=== PATIENT | female | born 1980 | race Caucasian/White ===

== ENCOUNTER 2016-07-18 12:42 | Emergency (ER) | payer MEDICAID, OTHER ==
[2016-07-18 14:29] VITALS: BP 129/64
--- NOTE | 2016-07-18 15:29 | RAD ---
INDICATION: Pain and swelling. COMPARISON: None TECHNIQUE: Duplex interrogation of the Lowerextremity was performed. FINDINGS: Deep veins: The common femoral, great saphenous, profunda femoris, proximal, mid, and distal deep femoral, popliteal, posterior tibial, and peroneal veins are patent. There is normal compressibility, augmentation, and phasic flow. Superficial veins: There are no findings of superficial thrombophlebitis. Popliteal fossa: There is a 3.3 x 1.0 x 1.7 cm popliteal cyst. Soft tissues:There are no soft tissue abnormalities. IMPRESSION: POPLITEAL CYST. NO EVIDENCE OF DEEP VENOUS THROMBOSIS.
--- NOTE | 2016-07-18 15:53 | UC ---
Lower Extremity/Ankle HPI - HPI Summary HPI Summary: PATIENT PRESENTS TO WITH CC OF WORSENING LEFT KNEE PAIN AND SWELLING OVER THE PAST SEVERAL WEEKS. SHE ALSO ENDORSES CALF PAIN WHICH IS REFERRED FROM THE POSTERIOR KNEE. SHE IS BEARING WEIGHT, ALTHOUGH SHE HAS AN ABNORMAL GAIT D/T PAIN. PAIN IS 5/10 AND CONSTANT. SHE HAS TRIED ELEVATION AND ICE WITHOUT RELIEF. SHE WAS SEEN AT A PCP OFFICE WHO GAVE HER MEXOLICAM WHICH SHE STATES DID NOT HELP, SO SHE DC'D USE. SHE HAS NEVER HAD THIS BEFORE AND HAS NO PERSONAL HISTORY OF JOINT PAINS. SHE HAS A STRONG FAMILY HISTORY OF OSTEOARTHRITIS. 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 SHE DENIES KNOWN INJURY. SHE IS OVERWEIGHT, BUT IS OTHERWISE HEALTHY AND TAKES NO MEDICATIONS. SHE IS REQUESTING A CORTISONE SHOT AND/OR DRAINAGE OF THE FLUID AROUND THE KNEE. IT WAS EXPLAINED TO PATIENT THERE WAS NOT MUCH FLUID AVAILABLE FOR AN ASPIRATION AND THE RISKS OUTWEIGH BENEFITS AT THIS TIME FOR INTRODUCING INFECTION. D/T PATIENT CALF PAIN, WILL OBTAIN AN US OF THE LLE. - History of Current Complaint Chief Complaint: UCLowerExtremity Stated Complaint: LEFT KNEE PAIN Time Seen by Provider: 07/18/16 14:24 Hx Obtained From: Patient Hx Last Menstrual Period: 07/05/16 ?: No Onset/Duration: Gradual Onset Severity Initially: Moderate Severity Currently: Moderate Pain Intensity: 5 Pain Scale Used: 0-10 Numeric Aggravating Factor(s): Standing, Ambulation Alleviating Factor(s): Rest Able to Bear Weight: Yes - Risk Factors Gout Risk Factors: Negative DVT Risk Factors: Negative Septic Arthritis Risk Factor: Negative - Allergies/Home Medications Allergies/Adverse Reactions: Allergies Allergy/AdvReac Type Severity Reaction Status Date / Time No Known Allergies Allergy Verified 07/18/16 14:29 Home Medications: Home Medications Meloxicam 7.5 mg PO BID 07/18/16 [History Confirmed 07/18/16] PMH/Surg Hx/FS Hx/Imm Hx Previously Healthy: Yes - Surgical History Surgical History: None - Family History Known Family History: Positive: Unknown, Other - OSTEOARTHRITIS - Social History Occupation: Employed Full-time Alcohol Use: None Substance Use Type: None Smoking Status (MU): Never Smoked Tobacco Review of Systems Constitutional: Negative Skin: Negative ENT: Negative Respiratory: Negative Cardiovascular: Negative Motor: Decreased ROM Neurovascular: Negative Musculoskeletal: Arthralgia Neurological: Negative Psychological: Negative All Other Systems Reviewed And Are Negative: Yes Physical Exam Triage Information Reviewed: Yes Appearance: Well-Appearing, No Pain Distress, Well-Nourished Vital Signs: Initial Vital Signs Temp 98.2 F 07/18/16 14:22 Pulse 90 07/18/16 14:22 Resp 16 07/18/16 14:22 BP 129/64 07/18/16 14:22 Pulse Ox 100 07/18/16 14:22 Vital Signs Reviewed: Yes Eye Exam: Normal Eyes: Positive: Conjunctiva Clear Neck exam: Normal Neck: Positive: Supple, Nontender, No Lymphadenopathy Respiratory Exam: Normal Respiratory: Positive: Chest non-tender, Lungs clear Cardiovascular Exam: Normal Cardiovascular: Positive: RRR Musculoskeletal Exam: Normal Musculoskeletal: Positive: Strength Limited @ - LEFT KNEE D/T PAIN, ROM Limited @ - LEFT KNEE D/T PAIN Neurological Exam: Normal Neurological: Positive: Alert, Muscle Tone Normal Psychological Exam: Normal Skin Exam: Normal Lower Extremity Course/Dx - Course Course Of Treatment: PATIENT SENT FOR US TO R/O DVT. POPLITEAL CYST ON US IMAGE. PATIENT MADE AWARE. SHE IS REQUESTING LAB WORK TO MAKE SURE NO INFECTION OR INFLAMMATION. IT WAS EXPLAINED TO THE PATIENT SHE WILL HAVE INFLAMMATION IT IS APPARENT ON PHYSICAL EXAM. ALTHOUGH SHE REQUESTS A CORTISONE SHOT OR ASPIRATION IT WAS EXPLAINED THE FLUID IS NOT LARGE ENOUGH TO ASPIRATE AT THIS TIME AND PATIENT WILL FOLLOW UP WITH DR. HUBBARD FOR FURTHER EVALATION THIS WEEK. PATIEN AGREES AND IS OK FOR DISCHARGE. CRP, ESR AND WBC OBTAINED. - Differential Dx/Diagnosis Differential Diagnosis/HQI/PQRI: Bursitis, Gout, Osteomyelitis, Sprain, Strain, Tendonitis Provider Diagnoses: KNEE EFFUSION Discharge - Discharge Plan Condition: Stable Disposition: HOME Patient Education Materials: Swollen Knee Joint (ED) Additional Instructions: FOLLOW UP WITH DR. HUBBARD THIS WEEK FOR FURTHER EVALUATION CONTINUE WITH MELOXICAM TAKE PAIN MEDICATION DIRECTED AND NEEDED.
[2016-07-18 19:40] LABS: Hematocrit 36 % (35-47); Hemoglobin 10.8 g/dl (12.0-16.0); Mean Corpuscular HGB Conc 31 g/dl (31-36); Mean Corpuscular Hemoglobin 17 pg (27-31); Mean Corpuscular Volume 57 fL (80-97); Mean Platelet Volume 10 um3 (7.4-10.4); Red Blood Count 6.25 10^6/ul (4.0-5.4); Red Cell Distribution Width 16 % (10.5-15); White Blood Count 12.2 10^3/ul (3.5-10.8)
[2016-07-18 19:41] LABS: Comments Flag Yes
[2016-07-18 19:43] LABS: Add Diff/Slide Review? Slide Review Added
[2016-07-18 20:09] LABS: Hypochromasia 3+; Microcytosis 2+
[2016-07-18 20:10] LABS: Polychromasia 1+
[2016-07-18 20:12] LABS: Add Path Review? YES
--- NOTE | 2016-07-20 07:42 | UC ---
Progress - Progress Note Progress Note: Labs show microcytosis (small red blood cells) and suggestion of thalasssemia. This is not an emergency and can be discussed with pcp for further workup if indicated.
== END 2016-07-18 16:14 | disposition home or self-care (01) ==
LOC: UCCORT 12:42
DX: M25.462 Effusion, left knee (principal); M25.562 Pain in left knee; M71.22 Synovial cyst of popliteal space [Baker], left knee; M79.89 Other specified soft tissue disorders
CPT/HCPCS: 36415; 85025; 85060; 85652; 86140; 99212; G0463

== ENCOUNTER 2017-01-20 14:39 | Emergency (ER) | payer OTHER ==
--- NOTE | 2017-01-20 15:13 | UC ---
Respiratory Complaint HPI - HPI Summary HPI Summary: 37 y/o female presents to the urgent care c/o sore throat, sinus congestion with post nasal drip and dry cough since 01/18/2017. Pt states her daughter was sick first. She would like the strep test to be done. Pt states TIERNEY and sore throat is 8/10. She has taking Mucinex and Nyquil to alleviate symptoms. Pt denies SOB, chest pain, abdominal pain, N/V/D - History of Current Complaint Stated Complaint: COUGH Time Seen by Provider: 01/20/17 15:12 Hx Obtained From: Patient Hx Last Menstrual Period: 07/05/16 ?: No Onset/Duration: Gradual Onset Timing: Constant Severity Initially: Mild Severity Currently: Severe Pain Intensity: 9 Pain Scale Used: 0-10 Numeric Character: Cough: Nonproductive Alleviating Factors: OTC Meds Associated Signs And Symptoms: Positive: Dyspnea, Nasal Congestion, Sinus Discomfort. Negative: Fever - Risk Factors Pulmonary Embolism Risk Factors: Negative Cardiac Risk Factors: Negative Pseudomonas Risk Factors: Negative Tuberculosis Risk Factors: Negative - Allergies/Home Medications Allergies/Adverse Reactions: Allergies Allergy/AdvReac Type Severity Reaction Status Date / Time No Known Allergies Allergy Verified 01/20/17 15:15 PMH/Surg Hx/FS Hx/Imm Hx Previously Healthy: Yes - Pt denies PMHX - Surgical History Surgical History: Yes Surgery Procedure, Year, and Place: CYST REMOVED FROM LOW BACK - Family History Known Family History: Positive: Diabetes Family History: OSTEOARTHRITIS - Social History Occupation: Employed Full-time Lives: With Family Alcohol Use: None Substance Use Type: None Smoking Status (MU): Never Smoked Tobacco Review of Systems Constitutional: Negative Skin: Negative Eyes: Negative ENT: Sore Throat, Nasal Discharge, Sinus Congestion, Sinus Pain/Tenderness Respiratory: Cough - dry Cardiovascular: Negative Gastrointestinal: Negative Genitourinary: Negative Motor: Negative Neurovascular: Negative Musculoskeletal: Negative Neurological: Headache Psychological: Negative Is Patient Immunocompromised?: No All Other Systems Reviewed And Are Negative: Yes Physical Exam Triage Information Reviewed: Yes - Additional Comments Vitals: reviewed General: Well developed, well-nourished female patient with NAD. Head and face: Normocephalic and atraumatic, Positive tenderness over the frontal and maxillary sinuses.. Eyes: PERRLA, EOMI x 2. Normal conjunctiva. No eye discharge. ENT: Ears and TM with normal limits. Nose: with yellowish discharge and edematous and erythematous mucosa. Pharynx with erythema, mild exudate. on left tonsil w/o enlargement Neck: Supple, no JVD, no carotid bruits and no lymphadenopathy. Lungs: clear, no rales, no rhonchi, no wheezes. CVS: RRR, S1 and S2 present no murmurs or gallops appreciated. Abdomen: soft nontender with positive bowel sounds. Extremities: no edema noted. Neuro: WNL. Skin: warm and dry Respiratory Course/Dx - Course Course Of Treatment: 37 y/o female presents to the urgent care c/o sore throat, sinus congestion with post nasal drip and dry cough since 01/18/2017. Pt states her daughter was sick first. She would like the strep test to be done. Pt states TIERNEY and sore throat is 8/10. She has taking Mucinex and Nyquil to alleviate symptoms. Pt denies SOB, chest pain, abdominal pain, N/V/D. Hx obtained. Pt with sinusitis and pharyngitis on examiantion. Rapid strep ordered , result: negative. Pt's BP elevted, but was done with smaller BP cuff. Repeated BP: 139/70. Pt with almost 2 weeks of symptoms getting worse. Pt Rx Amoxicillin PO and flonase nasal spray. Tessalon PO for cough. Discharge instructions explained to Pt. Advised to Return to the clinic or PCP if symptoms do not improve.Pt understood and agreed with plan of care. - Differential Dx/Diagnosis Differential Diagnosis/HQI/PQRI: Asthma, Bronchitis, Influenza, Laryngitis, Sinusitis Provider Diagnoses: 1- Acute bacterial sinusitis. 2- Cough Discharge - Discharge Plan Condition: Stable Disposition: HOME Prescriptions: Amoxicillin PO (*) [Amoxicillin 875 MG (*)] 875 mg PO BID #20 tab Benzonatate CAP* [Tessalon 100 MG CAP*] 100 mg PO TID PRN #15 cap PRN Reason: Cough Fluticasone NASAL SPRAY 50MCG* [Flonase NASAL SPRAY 50MCG*] 2 spray BOTH NARES DAILY #1 btl Patient Education Materials: Pharyngitis (ED), Sinusitis (ED) Referrals: Lamont White DO [Primary Care Provider] - If Needed Additional Instructions: 1- Please increase fluid intake and rest. take full course of antibiotic to avoid resistance 2-Use Flonase as directed to help drain fluid. Also buy saline drops to clear sinuses. Increase fluid intake eat well and rest 3-Take Tessalon PO to alleviates cough 4-Return to the clinic or PCP if symptoms do not improve for further management and treatment
[2017-01-20 15:43] VITALS: BP 139/70
== END 2017-01-20 15:42 | disposition home or self-care (01) ==
LOC: UCCORT 14:39
DX: J01.90 Acute sinusitis, unspecified (principal); R05 Cough; R06.00 Dyspnea, unspecified
CPT/HCPCS: 87651; 99212; G0463

== ENCOUNTER 2018-05-23 08:01 | Inpatient (IN) | payer OTHER ==
[2018-05-23] MEDS ORDERED: Buffered Lidocaine 1% SYRIN* 1 ML/SYRINGE INTRADERM ONE (09:03)
[2018-05-23] MEDS ORDERED: Lactated Ringers 1000 ML Bag* 1,000 ML IV ONE ×2 (09:03→16:56)
[2018-05-23] MEDS ORDERED: Nalbuphine* 10 MG/ML 1 ML VIAL IV ONE (09:08)
[2018-05-23] MEDS ORDERED: Promethazine INJ(RESTRICTED)* 25 MG/ML 1 ML VIAL IV ONE (09:08)
[2018-05-23] MEDS ORDERED: Benzonatate CAP* 100 MG PO PRN (09:17)
[2018-05-23] MEDS ORDERED: Oxytocin in LR* 20 UNITS/1,000 ML BAG IVPB ONE (09:21)
--- NOTE | 2018-05-23 09:29 | HP ---
General Information - Reason for Visit IUP@39 weeks here for an IOL for A1 GDM - General Information Maternal Age: 38 Grav: 3 Para: 2 SAB: 0 IEA: 0 Determined By: LMP Gestational Age in Weeks/Days: 39+0 Maternal Blood Type and Rh: A Positive - Results this Serology/RPR Result: Non-Reactive Rubella Result: Immune HBsAg Result: Negative HIV Result: Negative GBS Culture Result: Negative Past Medical History Delivery History: Hx Uncomplicated Vaginal Delivery Pertinent Past Medical History: See Records - Thalassemia - minor Pertinent Past Surgical History: See Records Past Surgical History Comment: Pilonidal Cystectomy (08/2007) [place] tooth extraction Pertinent Family History: See Records Family History Comment: Farther: Diabetes, Hodgkin's Disease Mother: Rheumatoid Arthritis PGF: d/t [place] - Antepartal Records Antepartal Records: Reviewed, Complicated by: - A1 GDM Review of Systems Constitutional: Comfortable Gastrointestinal: No Nausea/Vomiting Genitourinary: No Dysuria, No Leaking Fluid, Spotting Musculoskeletal: No Complaint Neurological: No Headache, No Visual Changes Movement: Normal Exam Allergies/Adverse Reactions: Allergies No Known Allergies Allergy (Verified 01/20/17 15:15) Temp 98.2, Pulse 100, RR 18, O2 100%, BP 115/65 - Measurements Height: 5 ft 4 in Weight: 225 lb Weight in lbs: [phone] Body Mass Index (BMI): 38.6 Pre- Weight: 210 lb Weight Gained This : 15 lbs and 0 ozs - Exam Breast: Breast Exam Deferred CVA: No CVA Tenderness Extremities: No Edema Heart: Normal Rhythm/Heart Sounds HEENT: No Significant Findings Lungs: Clear Bilaterally Rectal: Rectal Exam Deferred Reflexes: DTR 2+ Targeted Exam Findings Estimated Weight: 8lbs+ Cervical Exam: 3cm Effacement: 90% Station: -2 Presenting Part: Vertex Membrane Status: Intact Bleeding/Discharge: Bloody Show EFM Findings - External Monitor Findings Baseline Heart Rate: 140 External Monitor Findings: Accelerations Present, No Pattern of Variable or Late Decelerations, Variability Moderate External Monitor Findings Comment: No evidence of metabolic acidemia Contractions: Irregular Assessment/Plan - Assessment IUP@39, here for IOL for A1 GDM AC@ 36 weeks >97%, pt with 12lb weight gain GBS negative No evidence of metabolic acidemia IBOW Irregular contractions Comfortable, well supported by Would like to labor without pharm intervention, but open to epidural if needed - Obstetrical Risk Factors Obstetrical Risk Factors: Gestational Diabetes - Plan Plan: Admit - Anticipate Vaginal Delivery Plan Comment: Admit to L&D Per KG start Pitocin@6, up by 2 BG monitoring q4 hours VE and pain meds PRN Anticipate progression to active labor
[2018-05-23] MEDS ORDERED: Calcium Carbonate CHEW TAB* 500 MG (TUMS) PO PRN (09:36)
[2018-05-23] MEDS ORDERED: Oxytocin in LR* 20 UNITS/1,000 ML BAG IVPB SCH ×2 (10:00→22:00)
[2018-05-23] MEDS ORDERED: Lactated Ringers 1000 ML Bag* 1,000 ML IV SCH ×3 (10:00→22:00)
[2018-05-23 10:07] LABS: Hematocrit 36 % (33-41); Hemoglobin 11.4 g/dL (12.0-16.0); Mean Corpuscular HGB Conc 32 g/dL (31-36); Mean Corpuscular Hemoglobin 18 pg (27-31); Mean Corpuscular Volume 57 fL (80-97); Red Blood Count 6.36 10^6 /uL (3.70-4.87); Red Cell Distribution Width 15 % (10.5-15); White Blood Count 10.8 10^3/uL (3.5-10.8)
[2018-05-23 11:14] LABS: ABS Basophils 0.1 10^3/ul (0-0.2); ABS Eosinophils 0.1 10^3/ul (0-0.6); ABS Lymphocytes 2.2 10^3/ul (1.0-4.8); ABS Monocytes 0.5 10^3/ul (0-0.8); ABS Neutrophils 7.9 10^3/ul (1.5-7.7); ABS Nucleated RBC 0 10^3/ul; Eosinophil % 0.6 %; Lymphocyte % 20.5 %; Nucleated Red Blood Cells % 0; Platelet Count 228 10^3/uL (150-450)
[2018-05-23 11:15] LABS: Microcytosis 3+; Polychromasia 1+
--- NOTE | 2018-05-23 11:27 | PN ---
Progress Note - Progress Note Date of Service: 05/23/18 Note: SOAP: Subjective: Pt resting comfortably in bed. Starting to feel mild contractions every 5 minutes. in room resting. Objective: FHR baseline 140, moderate variability, + accels, no decels - difficult to trace Ctx 5-10 minutes, mild VE deferred Pitocin infusing at 10mU Assessment: VSS Pt tolerating Pitocin well No evidence of metabolic acidemia Contractions becoming more regular Plan: VE PRN Anticipate progression to active labor
[2018-05-23] MEDS ORDERED: OBEPIDURAL* 250 ML EPIDURAL ONE (15:54)
[2018-05-23] MEDS ORDERED: Sodium Citrate/Citric Acid* 15 ML UDC PO PRN (16:56)
[2018-05-23] MEDS ORDERED: Phenylephrine 40 MCG/ML SYRINGE IV PUSH PRN ×2 (16:56)
[2018-05-23] MEDS ORDERED: EPHEDrine (Pressors)* 50 MG/ML VIAL IV PUSH PRN ×2 (16:56)
[2018-05-23] MEDS ORDERED: Famotidine TAB* 20 MG PO PRN (16:56)
[2018-05-23] MEDS ORDERED: Lactated Ringers 1000 ML Bag* 500 ML IV PRN ×2 (16:56)
[2018-05-23] MEDS ORDERED: OBEPIDURAL* 250 ML EPIDURAL SCH (17:00)
--- NOTE | 2018-05-23 17:18 | PN ---
Progress Note - Progress Note Date of Service: 05/23/18 Note: SOAP: Subjective: Pt becoming more uncomfortable with contractions. in room resting. Objective: Last VE by KE, AROM clear fluid FHR baseline 150, moderate variability, + accels, no decels - difficult to trace Ctx 2.5-3.5 minutes, moderate VE deferred Pitocin infusing@16 mU Assessment: VSS Pt tolerating Pitocin well No evidence of metabolic acidemia Contractions becoming more regular Plan: VE PRN Anticipate progression to
--- NOTE | 2018-05-23 17:25 | PN ---
Progress Note - Progress Note Date of Service: 05/23/18 Note: SOAP: Subjective: Pt very uncomfortable with contractions, requesting an epidural. Objective: VE KE.5/90/0@1530 FHR 140, moderate variability, +accels, no decels Ctx 2 minutes, moderate- VE deferred Pitocin halved, 9mU Assessment: VSS Pt tolerating Pitocin well No evidence of metabolic acidemia Regular contractions Plan: Epidural now Anesthesia aware VE PRN Anticipate progression to active labor
--- NOTE | 2018-05-23 17:29 | PN ---
Progress Note - Progress Note Date of Service: 05/23/18 Note: SOAP: Subjective: Pt resting comfortably in bed with CEI infusing. Still sensing pressure with contractions. Reports feeling the need to "poop." at bedside. Objective: VE 7/100/0, FHR 135, moderate variability, +accels, occasional variable decel Ctx 2 minutes, moderate- Pitocin 9mU Assessment: No evidence of metabolic acidemia Regular contractions Plan: VE PRN Anticipate progression to
[2018-05-23] MEDS ORDERED: Amoxicillin PO (*) 875 MG TAB PO SCH (21:00)
[2018-05-23] MEDS ORDERED: Acetaminophen TAB* 325 MG PO PRN (21:21)
[2018-05-23] MEDS ORDERED: Tetan/Diph/Pertus SYR(Tdap)* 0.5 ML SYR(BOOSTRIX) use SYR IM ONE (21:21)
[2018-05-23] MEDS ORDERED: Witch Hazel PAD* JAR TOPICAL PRN (21:21)
[2018-05-23] MEDS ORDERED: Glycerin ADULT SUPP PR PRN (21:21)
[2018-05-23] MEDS ORDERED: Dibucaine 1% 28.35 GM TUBE PR PRN (21:21)
[2018-05-23] MEDS: Ibuprofen TAB* 600 MG PO PRN (21:42)
--- NOTE | 2018-05-23 21:44 | PN ---
Progress Note - Progress Note Date of Service: 05/23/18 Note: SOAP: Subjective: Pt resting comfortably in bed with CEI infusing. Still sensing pressure with contractions. at bedside. Objective: VE 9.5 (anterior lip)/100/0 FHR 140, moderate variability, +accels Contractions q5-7 Pitocin 9 mU Assessment: No evidence of metabolic acidemia Contractions spaced Plan: Increase Pitocin by 2 every 30 minutes VE 30 mins or sooner if pressure Anticipate progression to
--- NOTE | 2018-05-23 22:03 | PROCNOTE ---
[facility] OB: Delivery Note - Perineum Perineal Injury: 2nd Degree Perineal Repair: By Delivering Practioner - Events Delivery Events of Note: Pitocin During Labor, Difficult Delivery, Shoulder Dystocia - Additional Delivery Notes Additional Delivery Notes: Pt admitted at 39+0 for IOL for GDM, S>D. Pt was started on Pitocin and AROM'd, clear fluid. Received CEI per pt request, with excellent relief. Length of labor 9 hours and 21 minutes, pt pushed for 37 minutes. Vaginal delivery was complicated by a 30 second shoulder dystocia. Following Shaun, TYRON used the Alvarenga Screw maneuver to resolve the dystocia. Baby was delivered to mothers abdomen. Cord was clamped and baby brought to the warmer for additional bulb suction and stimulation. Baby was then vigorous with spontaneous cry, heartbeat >110 BPM. Spontaneous delivery of intact placenta, membranes complete. Fundus firm to massage with IV Pitocin infusing. Minimal bleeding noted, EBL 300 mL. Careful inspection of the perineum revealed a second degree laceration, repaired in the usual fashion, anatomy restored, good homeostasis achieved. At time of note, mother and in stable condition attempting to breastfeed.
[2018-05-23] MEDS ORDERED: Lidocaine 1% INJ* 10 MG/ML 30 ML SDV ONE (22:29)
[2018-05-24 07:26] LABS: Hematocrit 32 % (33-41); Mean Corpuscular HGB Conc 32 g/dL (31-36); Mean Corpuscular Hemoglobin 18 pg (27-31); Mean Corpuscular Volume 56 fL (80-97); Red Blood Count 5.65 10^6 /uL (3.70-4.87); Red Cell Distribution Width 15 % (10.5-15); White Blood Count 13.7 10^3/uL (3.5-10.8)
[2018-05-24 08:27] LABS: ABS Basophils 0.1 10^3/ul (0-0.2); ABS Eosinophils 0.1 10^3/ul (0-0.6); ABS Lymphocytes 2.5 10^3/ul (1.0-4.8); ABS Monocytes 0.8 10^3/ul (0-0.8); ABS Neutrophils 10.2 10^3/ul (1.5-7.7); ABS Nucleated RBC 0 10^3/ul; Eosinophil % 0.6 %; Lymphocyte % 18.2 %; Mean Platelet Volume 9.3 fL (7.4-10.4); Nucleated Red Blood Cells % 0; Platelet Count 230 10^3/uL (150-450)
[2018-05-24] MEDS ORDERED: Simethicone TAB* 80 MG TAB.CHEW PO SCH (08:30)
[2018-05-24] MEDS: Docusate CAP* 100 MG PO SCH ×3 (08:46→21:27)
[2018-05-24] MEDS: Ibuprofen TAB* 600 MG PO PRN ×2 (08:47→14:31)
[2018-05-24] MEDS ORDERED: Ferrous Gluconate TAB* 324 MG TAB PO SCH (09:00)
[2018-05-24] MEDS ORDERED: Fluticasone NASAL SPRAY 50MCG* 16 gm SPRAY BTL BOTH NARES SCH (09:00)
[2018-05-25] MEDS: Docusate CAP* 100 MG PO SCH (07:30)
[2018-05-25] MEDS: Ibuprofen TAB* 600 MG PO PRN (07:30)
[2018-05-25 09:42] VITALS: BP 119/62
== END 2018-05-25 10:57 | disposition home or self-care (01) | DRG 560 ==
LOC: MCHOBOUT 08:01 → MCHOB 08:43
PROVIDERS: ADMIT Advanced Practice Midwife; ATTEND Advanced Practice Midwife
PROC: 10E0XZZ Delivery of Products of Conception, External Approach (ICD-10-PCS; principal; 2018-05-23)
PROC: 3E033VJ Introduction of Other Hormone into Peripheral Vein, Percutaneous Approach (ICD-10-PCS; 2018-05-23)
PROC: 10907ZC Drainage of Amniotic Fluid, Therapeutic from Products of Conception, Via Natural or Artificial Opening (ICD-10-PCS; 2018-05-23)
PROC: 0KQM0ZZ Repair Perineum Muscle, Open Approach (ICD-10-PCS; 2018-05-23)
DX: O24.429 Gestational diabetes mellitus in childbirth, unspecified control (principal); Z37.0 Single live birth; O70.1 Second degree perineal laceration during delivery; O66.0 Obstructed labor due to shoulder dystocia; Z3A.39 39 weeks gestation of pregnancy
CPT/HCPCS: 36415; 85025; 86850; 86900; 86901; A9270-GY

== ENCOUNTER 2018-06-24 07:09 | Emergency (ER) | payer OTHER ==
--- NOTE | 2018-06-24 07:13 | UC ---
Ear Complaint HPI - HPI Summary HPI Summary: Patient is 38 year old female , who present today to the urgent care with plugged ears since today morning. She reports that she noticed that both of ears are plugged with decreased hearing, left is worse than the right. Denies any ear pain. She has been having some congestion for past few months but he is symptoms started today. She was and had her third child delivered about a month ago. She is not breast-feeding. Denies any fever, chills, cough , chest pain or shortness of breath . Denies any abdominal pain , nausea or vomiting , diarrhea or constipation. She has not tried any medication so far she was - History of Current Complaint Stated Complaint: PLUGGED EARS Time Seen by Provider: 06/24/18 07:12 Hx Obtained From: Patient Hx Last Menstrual Period: 07/05/16 ?: No - Allergies/Home Medications Allergies/Adverse Reactions: Allergies Allergy/AdvReac Type Severity Reaction Status Date / Time Latex, Natural Rubber Allergy Intermediate Rash Verified 05/23/18 10:07 PMH/Surg Hx/FS Hx/Imm Hx - Additional Past Medical History Additional PMH: No significant past medical history Previously Healthy: Yes - Surgical History Surgical History: Yes Surgery Procedure, Year, and Place: CYST REMOVED FROM LOW BACK - Family History Known Family History: Positive: Unknown, Diabetes, Other - OSTEOARTHRITIS Family History: OSTEOARTHRITIS - Social History Alcohol Use: None Substance Use Type: None Smoking Status (MU): Never Smoked Tobacco - Immunization History Most Recent Influenza Vaccination: none Most Recent Pneumonia Vaccination: never Review of Systems All Other Systems Reviewed And Are Negative: Yes Constitutional: Positive: Negative Skin: Positive: Negative Eyes: Positive: Negative ENT: Positive: Other - Plugging of ear and decreased hearing Some congestion. Negative: Sore Throat Respiratory: Positive: Negative. Negative: Cough Cardiovascular: Positive: Negative Gastrointestinal: Positive: Negative Genitourinary: Positive: Negative Motor: Positive: Negative Neurovascular: Positive: Negative Musculoskeletal: Positive: Negative Neurological: Positive: Negative Psychological: Positive: Negative Is Patient Immunocompromised?: No Physical Exam - Summary Physical Exam Summary: Physical Exam: Const: Appears well. No signs of apparent distress present. Alert and oriented x 3. Musculo: Walks with a normal gait. Head/Face: Atraumatic, normocephalic on inspection. Eyes: EOMI and PERRLA in both eyes. Conjunctivae clear. No discharge noted ENT: Hearing normal, no wax noted in the external auditory canal bilaterally. TM normal appearing bilaterally, non bulging , non erythematous . No tenderness on palpation / manipulation of Tragus. No mastoid tenderness. No tenderness to palpation on maxillary and frontal sinus. Mild pharyngeal erythema without any exudates exudates . Uvula is midline. No cervical or submandibular lymphadenopathy noted. Respiratory: Respirations are unlabored. Lungs clear to auscultation bilaterally, no wheezing , rhonchi or rales noted . CVS: Regular rate and Rhythm, S1S2 normal , no murmurs identified. Extremities: Peripheral circulation is grossly normal. Pulses 2+ Abdomen : Soft non tender , nondistended , Bowel sounds present . No guarding , rebound tenderness or rigidity noted. Skin: No lesions or rash located on the upper extremities or on the lower extremities. Neuro: Cranial nerves II to XII intact, motor and sensory intact. DTR Intact bilaterally. Mood is normal. Affect is normal. Triage Information Reviewed: Yes Vital Signs Reviewed: Yes Ear Complaint Course/Dx - Course Course Of Treatment: During the visit today, we discussed the findings which appeared to be consistent with eustachian tube dysfunction because of her allergies and pharyngeal irritation and erythema . I do not think that she needs antibiotics , but she insisted on getting a prescription . I advised her to fill the antibiotics if symptoms are not improving over the next 2-3 days . I will prescribe Claritin-D and Medrol Dosepak to the pharmacy . Patient expressed understanding . - Differential Dx/Diagnosis Provider Diagnosis: Eustachian tube dysfunction, Environmental allergies Discharge - Sign-Out/Discharge Documenting (check all that apply): Patient Departure All imaging exams completed and their final reports reviewed: No Studies - Discharge Plan Condition: Stable Disposition: HOME Prescriptions: Amoxicillin PO (*) [Amoxicillin 500 MG CAP*] 500 mg PO BID 10 Days #20 cap Loratadine/Pseudoephedrine [Claritin-D 24 Hour Tablet] 1 each PO DAILY 10 Days # 10 tab.er.24h methylPREDNISolone [Medrol Dosepak 4 MG*] 4 mg PO .SEE JYOTHI INSTRUCTION 6 Days # 1 jyothi Patient Education Materials: Earache (ED) Referrals: Lamont White DO [Doctor of Osteopathy] - 1 Week Additional Instructions: Please start taking the medication as prescribed to the pharmacy . I have prescribed amoxicillin as well. Please fill it if no improvement over the next 2-3 days. Follow up with your primary care doctor in 2-3 days Return to Urgent care / ER if symptoms get worse. - Billing Disposition and Condition Condition: STABLE Disposition: Home
[2018-06-24 07:25] VITALS: BP 109/65
== END 2018-06-24 08:05 | disposition home or self-care (01) ==
LOC: UCEAST 07:09
DX: H69.93 Unspecified Eustachian tube disorder, bilateral (principal); J30.2 Other seasonal allergic rhinitis; Z91.040 Latex allergy status
CPT/HCPCS: 99211; G0463

== ENCOUNTER 2019-01-04 19:42 | Emergency (ER) | payer OTHER ==
[2019-01-04 20:14] VITALS: BP 142/62
--- NOTE | 2019-01-04 20:30 | UC ---
Throat Pain/Nasal Fredrick HPI - HPI Summary HPI Summary: 38 y/o female presents to the urgent care c/o nasal congestion, sinus pain, pressure w/ yellowish nasal discharge for the past week. Symptoms have worsen for the past 2 days w/ a lot of PND even though she has taken OTC medication. This morning she woke up w/ sore throat and in then she noticed mild swelling around her upper lips. She took a Benadryl PO and allergy medication and symptoms resolved. Sinus pain is 6/10 associated w/ TIERNEY. She took Ibuprofen PO 800mg about 1 hr ago. Pt denies difficulty breathing or swallowing of tongue or throat, hoarseness, SOB, chest pain, dizziness, abdominal pain, N/V/D. - History of Current Complaint Chief Complaint: UCRespiratory Stated Complaint: SINUS PRESSURE Time Seen by Provider: 01/04/19 20:14 Hx Obtained From: Patient Hx Last Menstrual Period: 01/03/19 ?: No Onset/Duration: Gradual Onset, Lasting Weeks - 1 week, Still Present, Worse Since - 2 days Severity: Moderate Pain Intensity: 6 Pain Scale Used: 0-10 Numeric Cough: None Associated Signs & Symptoms: Positive: Sinus Discomfort, Nasal Discharge - yellowish. Negative: Wheezing, Hoarseness, Fever, Rash - Epiglottits Risk Factors Epiglottis Risk Factors: Negative - Allergies/Home Medications Allergies/Adverse Reactions: Allergies Allergy/AdvReac Type Severity Reaction Status Date / Time Latex, Natural Rubber Allergy Intermediate Rash Verified 01/04/19 20:09 PMH/Surg Hx/FS Hx/Imm Hx Previously Healthy: Yes - Pt denies PMHX - Surgical History Surgical History: Yes Surgery Procedure, Year, and Place: CYST REMOVED FROM LOW BACK - Family History Known Family History: Positive: Diabetes, Other - OSTEOARTHRITIS Family History: OSTEOARTHRITIS - Social History Occupation: Employed Full-time Lives: With Family Alcohol Use: None Substance Use Type: None Smoking Status (MU): Never Smoked Tobacco - Immunization History Most Recent Influenza Vaccination: none Most Recent Pneumonia Vaccination: never Review of Systems All Other Systems Reviewed And Are Negative: Yes Constitutional: Positive: Negative Skin: Positive: Negative Eyes: Positive: Negative ENT: Positive: Sore Throat, Nasal Discharge - yellowish, Sinus Congestion, Sinus Pain/Tenderness, Other - yellowish PND Respiratory: Positive: Negative Cardiovascular: Positive: Negative Gastrointestinal: Positive: Negative Genitourinary: Positive: Negative Motor: Positive: Negative Neurovascular: Positive: Negative Musculoskeletal: Positive: Negative Neurological: Positive: Negative Psychological: Positive: Negative Is Patient Immunocompromised?: No Physical Exam - Summary Physical Exam Summary: Vitals: reviewed General: Well developed, well-nourished female patient with NAD. Head and face: Normocephalic and atraumatic, Positive tenderness over the frontal and maxillary sinuses.. Eyes: PERRLA, EOMI x 2. Normal conjunctiva. No eye discharge. ENT: Ears and TM with normal limits. Nose: edematous and erythematous nasal mucosa with with yellowish discharge and erythematous mucosa. Pharynx with erythema, no exudate. yellowish PND Neck: Supple, no JVD, no carotid bruits and no lymphadenopathy. Lungs: clear, no rales, no rhonchi, no wheezes. CVS: RRR, S1 and S2 present no murmurs or gallops appreciated. Abdomen: soft nontender with positive bowel sounds. Extremities: no edema noted. Neuro: WNL. Skin: warm and dry Triage Information Reviewed: Yes Vital Signs: Initial Vital Signs Temp 97.2 F 01/04/19 20:10 Pulse 95 01/04/19 20:10 Resp 15 01/04/19 20:10 BP 142/62 01/04/19 20:10 Pulse Ox 100 01/04/19 20:10 Throat Pain/Nasal Course/Dx - Course Course Of Treatment: 38 y/o female presents to the urgent care c/o nasal congestion, sinus pain, pressure w/ yellowish nasal discharge for the past week. Symptoms have worsen for the past 2 days w/ a lot of PND even though she has taken OTC medication. This morning she woke up w/ sore throat and in then she noticed mild swelling around her upper lips. She took a Benadryl PO and allergy medication and symptoms resolved. Sinus pain is 6/10 associated w/ TIERNEY. She took Ibuprofen PO 800mg about 1 hr ago. Pt denies difficulty breathing or swallowing of tongue or throat, hoarseness, SOB, chest pain, dizziness, abdominal pain, N/V/D. Pt is hemodynamically stable, A&OX3 w/o any signs of allergic reaction. Pt w/ acute bacterial sinusitis on examination. Pt with 1 week of symptoms getting worse. Pt Rx Amoxicillin PO and flonase nasal spray. First dose of Amoxicillin PO given by the nurse ciro since pharmacy closed now. Pt's BP is elevated today advised to decrease salt in diet, monitor BP and f/u with PCP for further management. Discharge instructions explained to Pt. Advised to Return to the clinic or PCP if symptoms do not improve.Pt understood and agreed with plan of care. - Differential Dx/Diagnosis Differential Diagnosis/HQI/PQRI: Influenza, Laryngitis, Mononucleosis, Otitis Media, Pharyngitis, Sinusitis, Tonsillitis, URI Provider Diagnosis: Acute bacterial sinusitis, Elevated BP without diagnosis of hypertension Discharge ED - Sign-Out/Discharge Documenting (check all that apply): Patient Departure - d/C home All imaging exams completed and their final reports reviewed: No Studies - Discharge Plan Condition: Stable Disposition: HOME Prescriptions: Amoxicillin PO (*) [Amoxicillin 875 MG (*)] 875 mg PO BID #19 tab Fluticasone NASAL SPRAY 50MCG* [Flonase NASAL SPRAY 50MCG*] 2 spray BOTH NARES DAILY #1 btl Patient Education Materials: Sinusitis (ED) Referrals: [facility] [Outside] - 3 Days Additional Instructions: 1- Please increase fluid intake and rest. take full course of antibiotics to avoid resistance. Take yogurts w/ probiotics or Culturelle to protect your GI system 2-Use Flonase as directed to help drain fluid. Also buy saline drops to clear sinuses 3-Continue taking Ibuprofen PO 800mg q6-8hrs prn to alleviates sinus pain and TIERNEY 4-Please f/u w/ your PCP in 3 days if symptoms do not improve for further management and treatment 5- Your BP is elevated today. please decrease salt in your diet, monitor BP and if it continues to be elevated please f/u with your PCP for further management. - Billing Disposition and Condition Condition: STABLE Disposition: Home
[2019-01-04] MEDS ORDERED: Amoxicillin PO (*) 500 MG CAP PO ONE (20:41)
== END 2019-01-04 20:59 | disposition home or self-care (01) ==
LOC: UCCORT 19:42
DX: J01.90 Acute sinusitis, unspecified (principal); R03.0 Elevated blood-pressure reading, without diagnosis of hypertension; Z91.040 Latex allergy status
CPT/HCPCS: 99212; A9270-GY; G0463